=== PATIENT | male | born 2000 | race Caucasian/White ===

== ENCOUNTER → 2025-03-12 | Outpatient (CLI) | payer OTHER, SELFPAY ==
[2025-03-12 12:54] LABS: HIV Nonreactive (Nonreactive); Syphilis Antibodies Nonreactive (Nonreactive)
[2025-03-13 03:07] LABS: HEPATITIS B SURFACE AG Negative (Negative); Hep C Antibodies Non Reactive (Non Reactive)
== END | disposition home or self-care (01) ==
LOC: VSLAB 08:30
PROVIDERS: PCP Pediatrics
DX: Z72.51 High risk heterosexual behavior (principal)
CPT/HCPCS: 36415; 80074; 86703; 86780; 87491; 87591; 87661